=== PATIENT | female | born 1975 | race African-American/Black ===

== ENCOUNTER 2024-06-27 17:45 | Emergency (ER) | payer OTHER ==
[2024-06-27] MEDS ORDERED: Ibuprofen 600 MG TAB ONE (18:44)
== END 2024-06-27 18:50 | disposition home or self-care (01) ==
LOC: MADERS 17:45
DX: J11.1 Influenza due to unidentified influenza virus with other respiratory manifestations (principal); B34.9 Viral infection, unspecified
CPT/HCPCS: 87428; 99283